=== PATIENT | male | born 1980 | race Two or more races ===

== ENCOUNTER 2019-03-31 17:51 | Inpatient (IN) | payer OTHER ==
[~2019-03-31] VITALS: Ht 177.8 cm; Wt 89.7 kg
[2019-03-31] MEDS ORDERED: PRIS100T PO (18:04)
[2019-03-31] MEDS ORDERED: WELL200T PO (18:04)
[2019-03-31 18:16] LABS: BASO % 0.3 % (0.0-1.0); HEMATOCRIT 43.9 % (42.0-52.0); HEMOGLOBIN 15.4 g/dl (13.5-17.5); LYMPH # 1.1 10^3/uL (1.5-5.0); LYMPH % 15.4 % (24.0-44.0); MEAN CORPUSCULAR HEMOGLOBIN 33.2 pg (27.0-33.0); MEAN CORPUSCULAR HGB CONC 35.1 g/dl (32.0-36.5); MEAN CORPUSCULAR VOLUME 94.6 fl (80.0-96.0); MONO # 0.6 10^3/uL (0.0-0.8); MONO % 8.6 % (0.0-5.0); NEUTROPHILS # 5.3 10^3/uL (1.5-8.5); NEUTROPHILS % 75.3 % (36.0-66.0); PLATELET COUNT, AUTOMATED 202 10^3/uL (150-450); RED BLOOD COUNT 4.64 10^6/uL (4.30-6.10)
[2019-03-31] MEDS ORDERED: NS 1,000 ML IV ONE ×2 (18:30)
[2019-03-31 18:50] LABS: ALBUMIN 4.4 GM/DL (3.2-5.2); ALT/SGPT 59 U/L (12-78); BILIRUBIN,DIRECT 0.4 MG/DL (0.0-0.2); BILIRUBIN,TOTAL 1.3 MG/DL (0.2-1.0); BLOOD UREA NITROGEN 17 MG/DL (7-18); CALCIUM LEVEL 9.4 MG/DL (8.5-10.1); CARBON DIOXIDE LEVEL 24 MEQ/L (21-32); CHLORIDE LEVEL 94 MEQ/L (98-107); CK-MB VALUE MASS 2.3 NG/ML (<3.6); CPK CREATINE PHOSPHOKINASE 466 U/L (39-308); CREATININE FOR GFR 1.52 MG/DL (0.70-1.30); FREE T4 0.89 NG/DL (0.76-1.46); GLOMERULAR FILTRATION RATE 54.3 (>60); GLUCOSE, FASTING 153 MG/DL (70-100); MAGNESIUM LEVEL 2.2 MG/DL (1.8-2.4); MB/CK RELATIVE INDEX 0.49 (< OR =4); POTASSIUM SERUM 3.6 MEQ/L (3.5-5.1); SODIUM LEVEL 133 MEQ/L (136-145); TOTAL PROTEIN 7.9 GM/DL (6.4-8.2); TROPONIN I < 0.02 NG/ML (< 0.10)
--- NOTE | 2019-03-31 18:56 | REP ---
AP PORTABLE CHEST: 03/31/2019. Clinical history: Syncope/near-syncope. Findings: There were no prior studies. Lungs only marginally adequate in the degree of inflation. However, no visible infiltrate, effusion, atelectasis or mass. Heart, mediastinal and hilar contours grossly normal for this degree of inflation. No aortic aneurysm. Airway intact. Bones without acute finding. No free air. Impression: 1. No acute cardiopulmonary change. Electronically Signed by Nemesio Burk MD 03/31/2019 08:52 P
--- NOTE | 2019-03-31 19:24 | REPVR ---
PROCEDURE INFORMATION: Exam: CT Cervical Spine Without Contrast Exam date and time: 03/31/2019 6:57 PM Age: 38 years old Clinical indication: Injury or trauma; Fall; Initial encounter; Blunt trauma; Additional info: Fall/syncope TECHNIQUE: Imaging protocol: Computed tomography images of the cervical spine without contrast. Radiation optimization: All CT scans at this facility use at least one of these dose optimization techniques: automated exposure control; mA and/or kV adjustment per patient size (includes targeted exams where dose is matched to clinical indication); or iterative reconstruction. COMPARISON: No relevant prior studies available. FINDINGS: Vertebrae: Mild levoconvex curvature. Vertebral body height and AP alignment is preserved. No acute fracture. Discs/Spinal canal/Neural foramina: No significant central canal stenosis. Soft tissues: Unremarkable. Lungs: Lung apices are normal. Pleural space: No visible pneumothorax. IMPRESSION: No acute fracture. Electronically signed by: Norm Barone On 03/31/2019 19:24:05 PM
--- NOTE | 2019-03-31 19:25 | REPVR ---
PROCEDURE INFORMATION: Exam: CT Head Without Contrast Exam date and time: 03/31/2019 6:57 PM Age: 38 years old Clinical indication: Injury or trauma; Fall; Initial encounter; Blunt trauma (contusions or hematomas); With loss of consciousness; Loss of consciousness for 30 minutes or less; Additional info: Fall/syncope TECHNIQUE: Imaging protocol: Computed tomography of the head without contrast. Radiation optimization: All CT scans at this facility use at least one of these dose optimization techniques: automated exposure control; mA and/or kV adjustment per patient size (includes targeted exams where dose is matched to clinical indication); or iterative reconstruction. COMPARISON: No relevant prior studies available. FINDINGS: Brain: Normal. No hemorrhage. Unremarkable white matter. No mass effect. Ventricles: Normal. No ventriculomegaly. Bones/joints: Unremarkable. No acute fracture. Sinuses: Visualized sinuses are unremarkable. No fluid levels. Mastoid air cells: Visualized mastoid air cells are well aerated. Soft tissues: Unremarkable. IMPRESSION: No acute intracranial abnormality. Electronically signed by: Norm Barone On 03/31/2019 19:25:52 PM
[2019-03-31 19:47] LABS: ETHYL ALCOHOL (ETHANOL) < 0.003 % (0.000-0.010)
[2019-03-31] MEDS ORDERED: LORazepam 2 MG/ML VIAL (J2060) IV STA (19:47)
[2019-03-31 20:09] LABS: AMPHETAMINES LEVEL URINE NEGATIVE (NEGATIVE); BARBITURATES URINE NEGATIVE (NEGATIVE); BENZODIAZEPINES URINE NEGATIVE (NEGATIVE); CANNABINOIDS URINE NEGATIVE (NEGATIVE); COCAINE METABOLITE URINE NEGATIVE (NEGATIVE); METHADONE URINE NEGATIVE (NEGATIVE); OPIATES URINE NEGATIVE (NEGATIVE); PHENCYCLIDINE URINE NEGATIVE (NEGATIVE)
--- NOTE | 2019-03-31 20:38 | ECGEPIP ---
[facility] - ED Test Date: 2019-03-31 Pat Name: DAVINA HOLLIS Department: Room: - Gender: Male Distribution A Class Lineman: olegario : 1980 Requested By: Ese Curry Order Number: [id number] Reading MD: Ese Curry Measurements Intervals [place] Rate: 101 P: 57 KS: 148 QRS: -2 QRSD: 105 T: 31 QT: 346 QTc: 449 Interpretive Statements SINUS TACHYCARDIA INCOMPLETE RIGHT BUNDLE BRANCH BLOCK ABNORMAL RHYTHM ECG DELAYED R PROGRESSION NSTTW ABNORMALITY NO PRIOR Electronically Signed on 03-31-2019 20:38:23 EST by Ese Curry
[2019-03-31] MEDS ORDERED: OXAZEPAM 15 MG CAP PO ONE (20:45)
[2019-03-31] MEDS ORDERED: ACETAMINOPHEN TAB 650MG DOSE (2X325MG) PO PRN (22:00)
[2019-03-31] MEDS: HEPARIN SOD (PORCINE) 5000 UNITS/ML VIAL SC SCH (22:00)
[2019-04-01] MEDS: LORazepam 2 MG TAB PO PRN ×2 (00:15→03:35)
[2019-04-01] MEDS ORDERED: NS 1,000 ML IV SCH (00:30)
--- NOTE | 2019-04-01 00:36 | HPEPDOC ---
General Date of Admission Mar 31, 2019 at 21:48 Date of Service: Mar 31, 2019 Attending Physician: KRYSTEN CHANDRA MD Chief Complaint The patient is a 38-year-old male admitted with a reason for visit of Alcohol Withdrawal Seizure, Seizure. Source: Patient, Family Exam Limitations: No limitations Timing/Duration: 4-6 hours Severity: Severe Associated Symptoms: Other (Witnesses seizure) History of Present Illness 38 yo man who is active in the with a history of depression, anxiety and alcohol use disorder with last drink 2d prior to presentation who was BIBEMS after collapsin and having a witness grandmal seizure in [facility] while with his family. He reports massive consumption of beer and liquor since ~December with daily consumption and stopped drinking 2 days ago, and is due to move to [place] in 2 days. This afternoon while out with his family he suddenly collapsed, had LOC and had witnessed tonic clonic jerking for a few minutes and suffered a forehead laceration. In the ED, he was given ativan 1mg Iv and serax 30mg. His initial vitals were BP 148/77, HR 118, afebrile and saturating 94% on room air. Workup was notable for Cr 1.52, CXR without patholoty, CT head and neck without fractures, bleeding, CPK 466, WBC 7, AST 67, ALT 59, Tbili 1.3. He was given 2L NS and admitted to medicine for alcohol withdrawal c/b seizures at risk for DTs. Home Medications Scheduled Bupropion HCl (Wellbutrin Sr) 200 Mg Tab.sr.12h, 200 MG PO DAILY, (Reported) Desvenlafaxine Succinate (Pristiq) 100 Mg Tab.er.24h, 100 MG PO DAILY, (Reported) Allergies Coded Allergies: No Known Allergies (Unverified , 03/31/19) Past Medical History Medical History depression, anxiety and alcohol use disorder Surgical History Pyloric stenosis surgery Family History Significant Family History: No pertinent family hx Social History * Smoker: Denies Alcohol: heavy Drugs: denies Recent Travel/Sick Contacts: Denies: Recent travel, Recent sick contacts Psychosocial History: Anxiety, Decreased mood lives with and children. Active . Due to move to [place] in 2 days within the . Very concerned about how long he will need to be in the hospital. A-FIB/CHADSVASC A-FIB History Current/History of A-Fib/PAF?: No Current PO Anticoag Therapy: No Age/Risk Factor Scoring CHADSVASC: CHADSVASC Response (Comments) Value Age Risk Factor Age < 65 years old 0 Gender Risk Factor Male 0 Hx of CHF No 0 Hx of HTN No 0 Hx of Stroke/TIA/or VTE No 0 Hx of Diabetes No 0 Hx of Vascular Disease No 0 Total 0 Treatment Treatment ordered: NONE Reason Anticoagulant not given: Not indicated/[id number] Review of Systems Constitutional: Reports: Night Sweats; Denies: Chills, Fever Eyes: Denies: Pain, Vision change ENT: Denies: Head Aches, Ear Pain, Dysphagia Skin: Reports: Other (heavy sweating ) Pulmonary: Denies: Dyspnea, Cough Gastrointestinal: Denies: Nausea, Vomiting, Abdominal Pain, Diarrhea Genitourinary: Denies: Dysuria, Frequency, Incontinence, Retention Hematologic: Denies: Bruising, Bleeding Excessively Endocrine: Denies: Polydipsia, Polyphagia, Polyuria, Heat Intolerance, Cold Intolerance, Other Endocrine Sx Musculoskeletal: Denies: Neck Pain, Back Pain, Joint Pain, Muscle Pain, Spasms Neurological: Reports: Seizures, Other Symptoms (tremulous); Denies: Confusion Psych: Reports: Anxiety, Depression Physical Examination General Exam: Positive: Alert, No Acute Distress, Other (has thin long laceration on forehead) Eye Exam: Positive: PERRLA, EOMI; Negative: Conjunctiva & lids normal (injected sclera), Sclera icteric ENT Exam: Positive: Atraumatic, Mucous membr. moist/pink, Pharynx Normal Neck Exam: Positive: Supple; Negative: JVD, thyromegaly Chest Exam: Positive: Clear to auscultation, Normal air movement Heart Exam: Positive: Tachycardic, Normal S1, Normal S2; Negative: Murmurs Telemetry: Positive: Tachycardia Abdomen Exam: Positive: Normal bowel sounds, Soft; Negative: Tenderness, Hepatospenomegaly Extremity Exam: Positive: Normal pulses; Negative: Clubbing, Cyanosis, Edema Skin Exam: Positive: Nl turgor and temperature; Negative: Breakdown, Lesion Neuro Exam: Positive: Normal Speech, Strength at 5/5 X4 ext, Normal Tone, Sensation Intact, Cranial Nerves 3-12 NL, Reflexes 2+, Other (tremulous) Psych Exam: Positive: Anxiety, Oriented x 3 Vital Signs Vital Signs Date Time Temp Pulse Resp B/P (MAP) Pulse Ox O2 Delivery O2 Flow Rate FiO2 03/31/19 22:45 108 20 136/88 (104) 96 Room Air 03/31/19 18:13 97.8 Laboratory Data Labs 24H Laboratory Tests 2 03/31/19 18:10: Immature Granulocyte % (Auto) 0.4, Neutrophils (%) (Auto) 75.3H, Lymphocytes (%) (Auto) 15.4L, Monocytes (%) (Auto) 8.6H, Eosinophils (%) (Auto) 0.0, Basophils (%) (Auto) 0.3, Neutrophils # (Auto) 5.3, Lymphocytes # (Auto) 1.1L, Monocytes # (Auto) 0.6, Eosinophils # (Auto) 0.0, Basophils # (Auto) 0.0, Nucleated Red Blood Cells % (auto) 0.0, Anion Gap 15, Glomerular Filtration Rate 54.3L, Calcium Level 9.4, Magnesium Level 2.2, Total Bilirubin 1.3H, Direct Bilirubin 0.4H, Aspartate Amino Transf (AST/SGOT) 67H, Alanine Aminotransferase (ALT/SGPT) 59, Alkaline Phosphatase 80, Total Creatine Kinase 466H, Creatine Kinase MB 2.3, Creatine Kinase MB Relative Index 0.49, Troponin I < 0.02, Total Protein 7.9, Albumin 4.4, Albumin/Globulin Ratio 1.26, Thyroid Stimulating Hormone (TSH) 6.640H, Free Thyroxine 0.89, Ethyl Alcohol Level < 0.003 03/31/19 19:30: Urine Opiates Screen NEGATIVE, Urine Methadone Screen NEGATIVE, Urine Barbiturates Screen NEGATIVE, Urine Phencyclidine Screen NEGATIVE, Urine Amphetamines Screen NEGATIVE, Urine Benzodiazepines Screen NEGATIVE, Urine Cocaine Metabolite Screen NEGATIVE, Urine Cannabinoids Screen NEGATIVE CBC/BMP Laboratory Tests 03/31/19 18:10 Assessment/Plan 38 yo man who is active in the with a history of depression, anxiety and alcohol use disorder with last drink 2d prior to presentation who was B IBEMS after collapsing and having a witness seizure in [facility] now admitted to medicine for alcohol withdrawal c/b seizures at risk for DTs. Alcohol withdrawal: -CIWA protocol with symptom triggered PO ativan -s/p 2L NS, giving 1 more liter -folate, thiamine -Telemetry JUDE: likely prerenal in the setting of excessive alcohol and now withdrawal -s/p fluids, check AM BMP -replete lytes aggressively Alcohol use disorder: -has great support network -requesting to be started on medication to manage his alcohol use disorder, I believe his psychiatrist had suggested acamprosate before. Ready to begin and committed to quitting alcohol Depression and anxiety: -continue home bupropion and pristiq DVT ppx: heparin Dispo: pending clinical improvement and resolution of withdrawal Plan / VTE VTE Prophylaxis Ordered?: Yes KRYSTEN CHANDRA MD Apr 01, 2019 00:36
[2019-04-01 03:06] VITALS: BP 129/82
[2019-04-01] MEDS ORDERED: LORazepam 2 MG/ML VIAL (J2060) IV PRN (03:15)
[2019-04-01 03:26] VITALS: BP 129/83
[2019-04-01 05:58] LABS: HEMATOCRIT 38.4 % (42.0-52.0); HEMOGLOBIN 13.7 g/dl (13.5-17.5); MEAN CORPUSCULAR HEMOGLOBIN 33.4 pg (27.0-33.0); MEAN CORPUSCULAR HGB CONC 35.7 g/dl (32.0-36.5); MEAN CORPUSCULAR VOLUME 93.7 fl (80.0-96.0); PLATELET COUNT, AUTOMATED 145 10^3/uL (150-450); WHITE BLOOD COUNT 4.4 10^3/uL (4.0-10.0)
[2019-04-01] MEDS ORDERED: OXAZEPAM 15 MG CAP PO SCH ×2 (06:00→12:00)
[2019-04-01] MEDS: HEPARIN SOD (PORCINE) 5000 UNITS/ML VIAL SC SCH ×2 (06:19→13:38)
[2019-04-01 06:23] LABS: ALBUMIN 3.5 GM/DL (3.2-5.2); ALT/SGPT 49 U/L (12-78); BILIRUBIN,TOTAL 1.4 MG/DL (0.2-1.0); BLOOD UREA NITROGEN 11 MG/DL (7-18); CALCIUM LEVEL 8.2 MG/DL (8.5-10.1); CARBON DIOXIDE LEVEL 28 MEQ/L (21-32); CHLORIDE LEVEL 102 MEQ/L (98-107); CREATININE FOR GFR 0.91 MG/DL (0.70-1.30); GLOMERULAR FILTRATION RATE > 60.0 (>60); GLUCOSE, FASTING 92 MG/DL (70-100); MAGNESIUM LEVEL 2.3 MG/DL (1.8-2.4); POTASSIUM SERUM 2.6 MEQ/L (3.5-5.1); SODIUM LEVEL 138 MEQ/L (136-145); TOTAL PROTEIN 6.5 GM/DL (6.4-8.2)
[2019-04-01] MEDS ORDERED: POTASSIUM CHLORIDE 10 MEQ SR TABLET PO ONE ×2 (06:30→07:30)
[2019-04-01 07:39] VITALS: BP 133/74
[2019-04-01 08:00] VITALS: BP 133/74
[2019-04-01] MEDS ORDERED: MULTIVITAMINS/MINERALS THERAP 1 TAB PO SCH (09:00)
[2019-04-01] MEDS ORDERED: THIAMINE 100 MG TAB PO SCH (09:00)
[2019-04-01] MEDS ORDERED: DESVENLAFAXINE ER 50 MG TABLET (PRISTIQ) PO SCH (09:00)
[2019-04-01] MEDS ORDERED: buPROPion (WELLBUTRIN SR) 100 MG SR TAB PO SCH (09:00)
[2019-04-01] MEDS ORDERED: FOLIC ACID 1 MG TAB PO SCH (09:00)
[2019-04-01] MEDS ORDERED: MULTIVITAMIN -ADULT INJECTION 10 ML, THIAMINE INJection 100 MG, FOLIC ACID 1 MG in NS 1... IV ONE (10:00)
[2019-04-01 11:03] VITALS: BP 144/89
[2019-04-01 11:06] VITALS: BP 144/89
[2019-04-01] MEDS ORDERED: OXAZ15CA4 PO ×2 (13:01→15:59)
[2019-04-01] MEDS ORDERED: THIA100TA PO (13:03)
[2019-04-01] MEDS ORDERED: FOLI1TAB11 PO (13:03)
[2019-04-01] MEDS ORDERED: OXAZ30CA2 PO (15:41)
--- NOTE | 2019-04-03 21:02 | DSES ---
DATE OF ADMISSION: 03/31/2019 DATE OF DISCHARGE: 04/01/2019 PRIMARY DISCHARGE DIAGNOSES: 1. Alcohol withdrawal seizure. 2. Chronic alcohol abuse. 3. Acute kidney injury. 4. Depression and anxiety. 5. Acute kidney injury. 6. Hypokalemia. 7. Hyponatremia. 8. Hyperbilirubinemia. 9. Abnormal TSH. DISCHARGE MEDICATIONS: - folic acid 1 mg daily - oxazepam 15 mg every 6 hours - thiamine 100 mg twice a day - bupropion 200 mg daily - Pristiq 100 mg daily DISCHARGE INSTRUCTIONS: The patient is restricted from driving any motorized vehicle as he is as risk for both himself and the general public for recurrent seizures. The patient is to avoid alcohol and followup with primary care provider within 2 weeks of hospital discharge. HOSPITAL COURSE: This is a 38-year-old male with a known history of chronic alcohol abuse, anxiety disorder, depression, last drink was 2 days prior to presentation, was brought in by ambulance after collapsing at [facility] with a laceration on the forehead and alcohol withdrawal seizures. The patient is due to move to [place] today, he stopped drinking 2 days ago. He was seen in the emergency room and was stabilized, admitted to medical/surgical floor for alcohol withdrawal seizures. No recurrent episodes. He was placed on Clinical [place] Withdrawal Assessment (CIWA) protocol and Serax every 6 hours. Family was informed that he is not to drive any motorized vehicle as he is a risk for himself and the general public for possible recurrent seizures and with increased risk of motor vehicle accident. The will be making arrangements for the patient not to drive on their move from [place] to [place]. His [id number] [place] the [place] with their move since the patient will not be able to drive. The patient has had no other issues during this admission. He is discharged in stable condition. PHYSICAL EXAMINATION: On discharge: VITAL SIGNS: Temperature 97.5, pulse 89, respiratory rate 18, blood pressure 144/89, 96% on room air. The patient has a laceration on the forehead, which is scarred. He has some bruising on the left hand and pinky, swollen. LUNGS: Clear to auscultation. No wheezing, rales or rhonchi. HEART: S1, S2. Sinus rhythm. ABDOMEN: Soft, nontender, nondistended. EXTREMITIES: No cyanosis, clubbing or pitting edema. LABORATORY DATA: White count 4.4, hemoglobin 13, hematocrit 38, platelet count 145. Sodium 138, potassium 3.6, chloride 102, bicarbonate 28, BUN 11, creatinine 0.9, glucose of 92, total bilirubin 1.4. IMAGING STUDIES: CT of the head on 03/31/2019 showed no acute intracranial abnormality. Cervical spine CT showed no acute fracture. Time spent on discharge: 30 minutes.
== END 2019-04-01 13:55 | disposition home or self-care (01) | DRG 898 ==
LOC: M ED 17:51 → M ED INP 21:48 → ENRESERV 04-01 01:31 → M PCU 04-01 03:06 → M MS5PR 04-01 10:54
PROVIDERS: ADMIT Internal Medicine; ATTEND Internal Medicine
DX: F10.239 Alcohol dependence with withdrawal, unspecified (principal); N17.9 Acute kidney failure, unspecified; R56.9 Unspecified convulsions; F32.9 Major depressive disorder, single episode, unspecified; F41.9 Anxiety disorder, unspecified; Z79.899 Other long term (current) drug therapy; S01.81XA Laceration without foreign body of other part of head, initial encounter; W18.09XA Striking against other object with subsequent fall, initial encounter; Y92.512 Supermarket, store or market as the place of occurrence of the external cause; Y99.8 Other external cause status